=== PATIENT | female | born 1980 | race Native Hawaiian/Other Pacific Islander ===

== ENCOUNTER 2018-02-23 10:38 | Emergency (ER) | payer OTHER ==
[~2018-02-23] VITALS: Ht 165.1 cm; Wt 90.7 kg
[2018-02-23 10:59] VITALS: TEMP 98.4
[2018-02-23 11:39] LABS: PLATELET COUNT 264 K/uL (152-353)
[2018-02-23 11:44] LABS: POTASSIUM 4.2 mmol/L (3.6-5.2); SODIUM 141 mmol/L (136-145)
[2018-02-23 14:13] VITALS: BP 153/84
== END 2018-02-23 14:13 | disposition home or self-care (01) ==
LOC: ED 10:38
PROVIDERS: Emergency Medicine
DX: K21.9 Gastro-esophageal reflux disease without esophagitis (principal); R07.89 Other chest pain
CPT/HCPCS: 36415; 80053; 82550; 82553; 84484; 85027; 93005; 96374; 99284; J2270

== ENCOUNTER 2018-10-20 11:18 | Emergency (ER) | payer OTHER ==
[~2018-10-20] VITALS: Ht 165.1 cm; Wt 97.5 kg
[2018-10-20 12:25] VITALS: BP 121/82; TEMP 97.7
== END 2018-10-20 12:25 | disposition home or self-care (01) ==
LOC: ED 11:18
DX: M54.42 Lumbago with sciatica, left side (principal)
CPT/HCPCS: 96372; 99282; J1885

== ENCOUNTER 2018-12-27 13:14 | Outpatient (CLI) | payer OTHER | END 2018-12-27 19:36 | disposition home or self-care (01) | LOC: RAD 13:14 | DX: M54.17 Radiculopathy, lumbosacral region (principal) ==

== ENCOUNTER 2019-03-06 01:06 | Emergency (ER) | payer OTHER ==
[~2019-03-06] VITALS: Ht 165.1 cm; Wt 99.8 kg
[2019-03-06 03:31] VITALS: BP 139/78; TEMP 97.6
== END 2019-03-06 03:31 | disposition home or self-care (01) ==
LOC: ED 01:06
PROC: 2W3DX1Z Immobilization of Left Lower Arm using Splint (ICD-10-PCS; principal; 2019-03-06)
DX: S60.222A Contusion of left hand, initial encounter (principal); S60.212A Contusion of left wrist, initial encounter; W22.8XXA Striking against or struck by other objects, initial encounter
CPT/HCPCS: 99282; 99283

== ENCOUNTER 2019-04-26 13:05 | Emergency (ER) | payer OTHER ==
[~2019-04-26] VITALS: Ht 165.1 cm; Wt 99.3 kg
[2019-04-26 13:08] VITALS: TEMP 98.1
[2019-04-26] MEDS ORDERED: ZOLOFT25 MG PO (13:21)
[2019-04-26 13:52] LABS: PLATELET COUNT 262 K/uL (152-353)
[2019-04-26 14:01] LABS: POTASSIUM 3.9 mmol/L (3.6-5.2)
[2019-04-26 15:19] VITALS: BP 142/95
== END 2019-04-26 16:00 | disposition home or self-care (01) ==
LOC: ED 13:05
PROVIDERS: Emergency Medicine
DX: J02.0 Streptococcal pharyngitis (principal); R51 Headache; F17.210 Nicotine dependence, cigarettes, uncomplicated
CPT/HCPCS: 80053; 85027; 87502; 87651; 99283

== ENCOUNTER 2019-05-02 13:32 | Outpatient (CLI) | payer OTHER ==
[~2019-05-02 13:32] MED LIST: ZOLOFT25 MG PO
== END 2019-05-02 19:06 | disposition home or self-care (01) ==
LOC: MRI 13:32
DX: M51.36 Other intervertebral disc degeneration, lumbar region (principal)

== ENCOUNTER 2020-04-09 07:23 | Emergency (ER) | payer OTHER ==
[~2020-04-09] VITALS: Ht 165.1 cm; Wt 99.3 kg
[2020-04-09 07:29] VITALS: BP 154/86; TEMP 96.8
== END 2020-04-09 08:12 | disposition home or self-care (01) ==
LOC: ED 07:23
DX: N39.0 Urinary tract infection, site not specified (principal)
CPT/HCPCS: 81000; 87077; 87086; 87088; 87186; 96372; 99283; J0696; J2405

== ENCOUNTER 2022-07-12 06:03 | Observation (INO) | payer OTHER ==
[~2022-07-12] VITALS: Ht 165.1 cm; Wt 111.1 kg
[2022-07-12] VITALS (8 sets, daily range): BP systolic 107–144; BP diastolic 53–83; TEMP 97.8–99.2; Ht 165.1 cm; Wt 111.1 kg
[2022-07-12 06:54] LABS: PLATELET COUNT 178 K/uL (152-353)
[2022-07-12 07:17] LABS: POTASSIUM 3.9 mmol/L (3.6-5.2)
[2022-07-12] MEDS ORDERED: ESCI10TA PO (11:56)
[2022-07-12] MEDS ORDERED: METO25TA4 PO (11:56)
[2022-07-12] MEDS ORDERED: ASA LOW DOSE81 MG PO (11:57)
[2022-07-12] MEDS ORDERED: PANTOPRAZOLE 40MG TA PO (11:57)
[2022-07-12] MEDS ORDERED: CELECOXIB PO (11:59)
[2022-07-13 03:36] VITALS: BP 125/73; TEMP 97.9
[2022-07-13 08:00] VITALS: BP 150/79; TEMP 98.1
[2022-07-13] MEDS ORDERED: XOPENEX HF45 MCG/ACT INH (08:28)
[2022-07-13] MEDS ORDERED: PRED20TA27 PO (08:30)
[2022-07-13] MEDS ORDERED: CEFD300C2 PO (08:30)
[2022-07-13] MEDS ORDERED: METO-837 PO (08:31)
[2022-07-13] MEDS ORDERED: CODELIQ8 PO (08:32)
== END 2022-07-13 11:09 | disposition home or self-care (01) ==
LOC: ED 06:03 → MED/SURG 10:00
PROVIDERS: Emergency Medicine; ADMIT Emergency Medicine; ATTEND Internal Medicine
DX: J18.8 Other pneumonia, unspecified organism (principal); I47.1 Supraventricular tachycardia; R04.2 Hemoptysis; Z72.0 Tobacco use; R07.89 Other chest pain
CPT/HCPCS: 36415; 80048; 83605; 84484; 85027; 85379; 87040; 87070; 87205; 87502; 87635; 93005; 94664; 96367; 96372; 96375; 99221; 99284; G0378; J0696; J1885; J2920; Q9963; U0003